=== PATIENT | male | born 2000 | race Hispanic/Latino ===

== ENCOUNTER 2024-04-03 20:29 | Emergency (ER) | payer SELFPAY ==
[2024-04-03 20:30] VITALS: BP 130/68
--- NOTE | 2024-04-03 21:39 | ED.GENMED ---
History of Present Illness
General
Chief Complaint: Oral/Mouth Problem
Source: patient
Exam Limitations: none
Time Seen by Provider: 04/03/24 21:01
Nursing documentation reviewed up to this point in time: agreed with
History of Present Illness
History of Present Illness:
Patient is a 23-year male who presents to the ER complaining of left-sided facial pain. He does feel soreness in his left posterior wisdom tooth area and the left side of his face. He did take ibuprofen. He denies any fever chills difficulty
breathing. He does not have dental shortness nor does he have a dentist. He denies any difficulty breathing
Review of Systems
Review of Systems
Allergies reviewed?: Yes
All Other Systems: ROS reviewed and negative except as documented in HPI and ROS
Constitutional: Reports no symptoms; Denies fever, fatigue or chills
EENT: Reports other (left lower tooth pain/facial pain )
Respiratory: Reports no symptoms
Cardiac: Reports no symptoms
Skin: Reports no symptoms
Neurological: Reports no symptoms
Psychiatric: Reports no symptoms
Phy Exam
General Physical Exam
General Presentation: no apparent distress
General age: appears stated age
General Skin: warm and dry
General Habitus: normal
General Mental: alert
General Hydration: appears well hydrated
ENT Exam
ENT Exam: other (left lower posterior wisdom tooth impacted and tender no trismus no fluctuance , no facial swelling)
Neurological Exam
Neurological Exam: alert and oriented x3
Musculoskeletal Exam
Musculoskeletal Exam: full ROM
Skin Exam
Skin Exam: normal color and warm/dry
Psychiatric Exam
Psychiatric Exam: normal mood/affect
Course
Orders/Labs/Results
Orders:
Orders
04/03/24 21:38
Penicillin V Potassium [Pen Vk] 500 mg PO NOW STA
Vital Signs
Initial and Last Documented VS:
Initial Vital Signs
Temp Pulse Resp BP Pulse Ox
98.0 F 64 18 130/68 96
04/03/24 20:30 04/03/24 20:30 04/03/24 20:30 04/03/24 20:30 04/03/24 20:30
Last Documented Vital Signs
Temp Pulse Resp BP Pulse Ox
98.0 F 64 18 130/68 96
04/03/24 20:30 04/03/24 20:30 04/03/24 20:30 04/03/24 20:30 04/03/24 20:30
MDM/Problems Addressed
MDM/Problems Addressed:
Symptoms are consistent with impacted wisdom tooth will treat with antibiotics, Motrin with close outpatient follow-up. He is in no acute distress no trismus no facial swelling or difficulty breathing no fevers. Patient does not have any dental
insurance. He is more familiar with dental clinics at [facility] [place] with information for [facility] discussed with patient to return if any worsening of symptoms
*Pulse Oximetry
Patient hypoxic: no
*Critical Care Note
Total Time (30-74mins, 75-104mins- exclusive of procedures): Not Applicable
ED Attending Note
-
Portions of this chart may have been created with voice recognition software.� Occasional wrong word or��sound alike� substitutions may have occurred due to the inherent limitations of voice recognition software.
Discharge Plan
Departure
Patient Disposition: Home (Routine Discharge)
Date of Disposition: 04/03/24
Time of Disposition: 21:42
Patient with high blood pressure during this ER visit?: Yes
Condition: Fair
Discharge Problem:
dental pain
Instructions: Dental Pain (DC), BLOOD PRESSURE
Prescriptions:
New
penicillin V potassium 500 mg tablet
500 mg PO QID Qty: 40 0RF
Referrals:
NONE,* [Family Provider] -
Activity Restrictions/Additional Instructions:
As discussed a prescription for antibiotics was sent to your pharmacy take as directed. You may take ibuprofen alternate with Tylenol for pain. You may call [facility] at: [phone] for follow-up and evaluation. Return if
any worsening of symptoms or increased pain swelling redness difficulty breathing difficulty swallowing fever or chills.
Interventions
Interventions:
*Risk Screen - Suicide Last Done: 04/03/24 20:30
*General Assessment Last Done: 04/03/24 20:30
*Neglect/Abuse Screening Last Done: 04/03/24 20:30
Discharge Date and Time
Print Language: UZBEK
[2024-04-03] MEDS: PEN VK 500 MG PO (21:51)
[2024-04-03 21:53] VITALS: BP 126/63
[2024-04-03 21:59] VITALS: BP 126/63
== END 2024-04-03 22:01 | disposition home or self-care (01) ==
LOC: EMR 20:29
PROVIDERS: EMERGENCY PHYSICIAN Emergency Medicine
DX: K08.89 Other specified disorders of teeth and supporting structures (principal)
CPT/HCPCS: 99282

== ENCOUNTER 2024-09-29 11:19 | Emergency (ER) | payer SELFPAY ==
[2024-09-29 11:29] VITALS: BP 128/76
[2024-09-29 12:00] VITALS: BMI 27.0
--- NOTE | 2024-09-29 12:14 | ED.GENMED ---
History of Present Illness
General
Chief Complaint: Dental Problem
Source: patient
Exam Limitations: none
Time Seen by Provider: 09/29/24 12:01
History of Present Illness
History of Present Illness:
24yoM with no significant past medical history presenting for evaluation of dental pain. Symptoms have been ongoing for about a week. The pain is localized to the right lower wisdom tooth. His noticed some swelling around the tooth and they
became concerned for infection. He has been taking Tylenol BID without much relief. He was seen in the ED last year for similar complaints. He was told previously that he would need his wisdom teeth removed but does not have dental insurance and
does not see a dentist regularly. He denies any fevers.
Phy Exam
General Physical Exam
General Presentation: well appearing and no apparent distress
General age: appears stated age
General Skin: warm and dry
General Habitus: normal
General Mental: alert
ENT Exam
ENT Exam: TM's normal, neck supple, normocephalic and other (Mild swelling surrounding R lower wisdom tooth. No periapical abscess, overlying facial swelling, or elevation of floor of mouth.)
Pulmonary Exam
Pulmonary Exam: no respiratory distress
Skin Exam
Skin Exam: normal color and warm/dry
Psychiatric Exam
Psychiatric Exam: normal mood/affect
Course
Orders/Labs/Results
Orders:
Orders
09/29/24 12:14
Ketorolac [Toradol] 30 mg IM NOW STA
Vital Signs
Initial and Last Documented VS:
Initial Vital Signs
Temp Pulse Resp BP Pulse Ox
98.0 F 73 18 128/76 100
09/29/24 11:29 09/29/24 11:29 09/29/24 11:29 09/29/24 11:29 09/29/24 11:29
Last Documented Vital Signs
Temp Pulse Resp BP Pulse Ox
98.0 F 73 18 128/76 100
09/29/24 11:29 09/29/24 11:29 09/29/24 11:29 09/29/24 11:29 09/29/24 11:29
MDM/Problems Addressed
Differential Diagnosis Includes:
24yoM here with dental pain. VSS. There is mild swelling around R lower wisdom tooth on exam. No evidence of abscess, facial cellulitis, or Jose Miguel's noted. IM Toradol ordered for symptoms. He was started on a course of penicillin. Supportive care
discussed. Advised follow-up with a dentist/OMFS. ED return precautions reviewed. Patient in agreement with plan and was discharged in stable condition.
*Critical Care Note
Total Time (30-74mins, 75-104mins- exclusive of procedures): Not Applicable
ED Attending Note
-
Portions of this chart may have been created with voice recognition software.� Occasional wrong word or��sound alike� substitutions may have occurred due to the inherent limitations of voice recognition software.
Discharge Plan
Departure
Patient Disposition: Home (Routine Discharge)
Date of Disposition: 09/29/24
Time of Disposition: 12:16
Patient with high blood pressure during this ER visit?: No
Discharge Problem:
Dentalgia
Instructions: Dental Pain (DC)
Prescriptions:
New
penicillin V potassium 500 mg tablet
500 mg PO QID 7 Days Qty: 28 0RF
No Action
penicillin V potassium 500 mg tablet
500 mg PO QID Qty: 40 0RF
Referrals:
Ovidio Gudino DMD, MD [Active] -
UNKNOWN - PT DOES,NOT KNOW [Family Provider] -
Activity Restrictions/Additional Instructions:
Take antibiotics as prescribed. Continue taking Tylenol as needed. You may also take ibuprofen 600mg every 6 hours as needed for pain.
Please follow-up with a dentist and/or oral surgeon. Return to the ER with any worsening symptoms including fevers.
Interventions
Interventions:
*Risk Screen - Suicide Last Done: 09/29/24 11:29
*General Assessment Last Done: 09/29/24 12:00
*Neglect/Abuse Screening Last Done: 09/29/24 12:00
*ED- Fall Risk Assessment Last Done: 09/29/24 12:00
*ED COVID-19 Vaccine History Last Done: 09/29/24 12:00
*Nursing Disposition Last Done: 09/29/24 12:32
Discharge Date and Time
Discharge Date/Time: 09/29/24 12:28
Print Language: [email or web address]
[2024-09-29] MEDS: TORADOL 30 MG IM (12:21)
== END 2024-09-29 12:28 | disposition home or self-care (01) ==
LOC: EMR 11:19
PROVIDERS: EMERGENCY PHYSICIAN Emergency Medicine
DX: K08.89 Other specified disorders of teeth and supporting structures (principal)
CPT/HCPCS: 96372; 99284

== ENCOUNTER 2025-01-11 20:21 | Emergency (ER) | payer SELFPAY ==
[2025-01-11 20:32] VITALS: BP 140/84
[2025-01-12 01:02] VITALS: BP 117/66
--- NOTE | 2025-01-12 01:03 | EDRN ---
Pt injured his L wrist 2 months ago while working out. Pt has been wearing a brace since the injury and has not sought medical evaluation until today. Pt complains of pain in L wrist when he moves his L thumb and says it radiates up his forearm.
After initial injury, it felt better however he remembers feeling something 'snap' and the pain has been worse since. Pt noted increased swelling today which prompted this ED visit.
--- NOTE | 2025-01-12 01:31 | ED.MUSCINJ ---
HPI-Injury
General
Chief Complaint: Musculo-Skeletal Complaint
Source: patient and significant other
Exam Limitations: none
Time Seen by Provider: 01/12/25 00:38
Nursing documentation reviewed up to this point in time: agreed with
History of Present Illness-Injury
Initial Injury comments:
Note:
CHIEF COMPLAINT(S)
Thumb pain
HISTORY OF PRESENT ILLNESS
The patient is a 27-year-old male who presents with thumb pain that started following an incident while working out approximately two months ago. The pain is localized to the thumb and is exacerbated by certain movements. The patient describes it as
a feeling of a 'pop' in the thumb, followed by intense pain. The patient has not noticed any pain when moving the wrist. He reported wearing a thumb immobilizer, but not a full wrist splint. The pain seems to worsen when compressing the thumb
against the keys, suggesting possible inflammation compressing a nerve. The patient has been taking Ibuprofen for pain but has since stopped.
PAST MEDICAL AND SURGICAL HISTORY
No previous fractures noted.
REVIEW OF SYSTEMS
- Musculoskeletal: Pain in thumb, exacerbated by movement. No wrist or shoulder pain reported.
- Neurological: Spasms noted in the thumb when it is compressed or moved in certain positions.
PHYSICAL EXAM
General: Patient is alert and in no acute distress.
Musculoskeletal: Pain and spasms present in the thumb upon certain movements.
PROBLEM LIST
Acute Problems:
- Thumb pain and spasms likely due to tendon overuse or compression.
- Potential inflammatory process compressing the nerve.
PLAN
1. Prescribe a 12-hour ibuprofen (Motrin IB) for anti-inflammatory purposes, to be taken every 12 hours, irrespective of pain presence.
2. Advise the patient to wear a wrist splint with thumb support to prevent further irritation and limit thumb movement.
3. Refer the patient to [facility] for further evaluation due to persistent symptoms beyond two months.
4. Recommend the patient follow-up with an patient accounts specialist even if symptoms improve over time.
5. Perform an additional review of the patients thumb X-ray to rule out any missed fracture.
DIFFERENTIAL DIAGNOSIS
The Differential Diagnosis includes, in no particular order and is not limited to:
1. De Quervains tenosynovitis
2. Tendinitis
3. Fracture (missed on initial X-ray)
4. Nerve compression syndrome
5. Osteoarthritis
6. Trigger finger
7. Rheumatoid arthritis
8. Gout
9. Psoriatic arthritis
10. Ligament injury
Disposition:
SUMMARY OF ENCOUNTER
The patient is a 27-year-old male presenting with two months of left thumb pain following an incident while lifting weights. The pain is primarily noted during thumb movements and is absent when moving the wrist. Despite wearing a brace, the pain
initially improved but has since worsened. There is no tenderness to palpation in the anatomical snuffbox on examination.
ASSESSMENT
Thumb pain with spasms likely due to tendon overuse or compression, possibly with an inflammatory component compressing a nerve.
PLAN
1. Prescribe ibuprofen (Motrin IB) to be taken every 12 hours for its anti-inflammatory effect.
2. Recommend wearing a wrist splint with thumb support to prevent further irritation and limit movement.
3. Refer to an patient accounts specialist for further evaluation due to symptoms persisting beyond two months.
4. Advise a follow-up with the patient accounts specialist even if symptoms improve over time.
5. Perform an X-ray review of the thumb to check for any missed fractures.
PATIENT EDUCATION AND COUNSELING
The patient was informed about the potential causes of the thumb pain, such as tendon overuse or nerve compression, and the importance of using an anti-inflammatory regimen and splinting for relief. The need for orthopedic evaluation was emphasized
due to persistent symptoms.
FOLLOW-UP INSTRUCTIONS
The patient is advised to schedule an appointment with an patient accounts specialist for further evaluation and management.
MEDICATION RECONCILIATION
1. Prescription for Ibuprofen (Motrin IB), to be taken every 12 hours.
MEDICAL DECISION MAKING
- Number and Complexity of Problems Addressed: Secondarily, consider conditions that may be affecting the thumb, such as potential tendon overuse or nerve compression under the differential.
- Data:
- Category 1: Review of initial examination findings indicating tenderness absence in the anatomical snuffbox.
- Category 3: Planned referral to an patient accounts specialist for advanced evaluation and management.
- Risk: Prescription medication was prescribed in the form of ibuprofen, and consideration of further diagnostics (thumb X-ray) is part of the management plan.
DIAGNOSIS
1. De Quervains tenosynovitis (M65.4)
2. Tendinitis (M65.9)
3. Nerve compression syndrome (G56.0)
Musculoskeletal Injury Exam
Musculoskeletal Injury Exam
Left Thumb:
Pain with Movement?: Mild
Tender to palpation?: None
Soft tissue swelling?: None
External deformity and angulation?: None
Crepitus with movement?: No
Joint instability?: No
Phy Exam
General Physical Exam
General Presentation: well appearing and no apparent distress
General Skin: warm and dry
General Habitus: normal
General Mental: alert
General Hydration: appears well hydrated
ENT Exam
ENT Exam: EOMI, pharynx normal, neck supple and normocephalic
Eye Exam
Eye Exam: PERRL, cornea clear and conjunctiva normal
Pulmonary Exam
Pulmonary Exam: no respiratory distress and no cough
Gastrointestinal Exam
Gastrointestinal Exam: normal bowel sounds, non tender, soft, no organomegaly, no pulsatile mass and non distended
Neurological Exam
Neurological Exam: alert, oriented x3, no motor deficits and speech normal
Musculoskeletal Exam
Musculoskeletal Exam: full ROM and no edema
Skin Exam
Skin Exam: normal color, warm/dry, no rash and no petechia
Psychiatric Exam
Psychiatric Exam: normal mood/affect
Injury Course
Orders/Labs/Results
Orders:
Orders
01/11/25 20:28
CR Wrist - Left Min 3 Views Urgent
Comment:
Reason For Exam: injury, swelling
*Radiology
Radiology exam reviewed: all reviewed NAD by ED Provider
*Pulse Oximetry
SaO2: 100
Oxygen Mode of Delivery: Room air
Patient hypoxic: no
*Critical Care Note
Total Time (30-74mins, 75-104mins- exclusive of procedures): Not Applicable
ED Attending Note
-
Portions of this chart may have been created with voice recognition software.� Occasional wrong word or��sound alike� substitutions may have occurred due to the inherent limitations of voice recognition software.
Discharge Plan
Departure
Patient Disposition: Home (Routine Discharge)
Date of Disposition: 01/12/25
Time of Disposition: 01:31
Patient with high blood pressure during this ER visit?: Yes
Condition: Good
Discharge Problem:
Hand pain, left
Instructions: Muscle and Bone Pain (DC), Ibuprofen, Splint Care, BLOOD PRESSURE
Prescriptions:
New
diclofenac sodium 75 mg tablet,delayed release (DR/EC)
75 mg PO BID Qty: 10 0RF
Referrals:
Bonifacio Vera MD [Active, Orthopedics]
Activity Restrictions/Additional Instructions:
Please follow-up with orthopedics, as discussed.
Wear the thumb splint as much as possible.
Take the Voltaren as directed for 3 to 4 days.
Thank You for choosing [facility].
It was a pleasure meeting you and taking part in your care. We hope for your continued healing and wellness.
Please read discharge instructions in their entirety. However, they are for general education and may not describe your exact diagnosis at discharge. Information on your ER visit and medical conditions were discussed with you along with appropriate
follow up information...
If indicated, please take your medications as instructed and indicated on discharge paperwork.
Please schedule a follow up appointment as directed. Call to schedule an appointment
Please return to the emergency department with ANY change in, persisting, or worsening of symptoms. If any of your symptoms do not improve, or persist, or become more severe within 6-12 hours, please return to the emergency department for further
care.
Please return to the emergency department if you develop a headache, neck pain/stiffness, fever greater than 100.4F, chest pain, shortness of breath, persistent nausea, vomiting, slurred speech, difficulty walking, numbness/tingling, weakness, signs
of infection or any other symptoms that are worrisome to you.
If you have any questions or concerns please do not hesitate to call the Hospital at or E-mail me directly at [email or web address]
Interventions
Interventions:
*Risk Screen - Suicide Last Done: 01/11/25 20:26
*General Assessment Last Done: 01/11/25 20:26
*Neglect/Abuse Screening Last Done: 01/11/25 20:26
*ED- Fall Risk Assessment Last Done: 01/12/25 01:02
ED-Musculoskeletal Assessment Last Done: 01/12/25 01:02
Discharge Date and Time
Print Language: UZBEK
== END 2025-01-12 01:40 | disposition home or self-care (01) ==
LOC: EMR 20:21
PROVIDERS: EMERGENCY PHYSICIAN Student in an Organized Health Care Education/Training Program
DX: M65.4 Radial styloid tenosynovitis [de Quervain] (principal); M77.9 Enthesopathy, unspecified; M79.642 Pain in left hand
CPT/HCPCS: 99283; 73110